=== PATIENT | female | born 1980 | race Caucasian/White ===

== ENCOUNTER → 2018-08-28 19:21 | Outpatient (CLI) | payer OTHER, SELFPAY ==
[2018-08-28 16:57] VITALS: BMI 45.1
[2018-08-28 19:40] LABS: Absolute Lymphocyte Count 2.56 X10^3/ul (0.83-4.51); Basophil# 0.01 X10^3/uL; Basophil% 0.1 % (0-1); Eosinophils% 2.4 % (0-5); Hematocrit 36.1 % (37-47); Hemoglobin 11.4 g/dl (12.0-15.0); Lymphocyte # 2.56 X10^3/ul (4.0); Mean Corp Hgb Conc 31.6 g/gl (32-36); Mean Corpuscular Hgb 29.4 pg (27.0-32.0); Mean Platelet Vol. 11.2 fl (6.2-12.0); Monocyte# 0.49 X10^3/uL; Monocyte% 5.9 % (0-10); Neutrophil % 60.5 % (47-70); Platelet Count 161 K/mm3 (150-450); RBC Distribution Width CV 14.3 % (11.6-14.6); RBC Distribution Width SD 48.1 fl (35.1-43.9); Red Blood Count 3.88 M/mm3 (4.2-5.4); White Blood Count 8.3 K/mm3 (4.4-11.0)
[2018-08-28 19:43] LABS: POSITIVE COUNT NO; POSITIVE DIFFERENTIAL NO; POSITIVE MORPHOLOGY NO
[2018-08-28 19:55] LABS: AST(SGOT) 12 U/L (15-37); Alanine Aminotransfer ALT/SGPT 21 U/L (13-56); Albumin, Serum 3.5 g/dL (3.2-5.0); Alkaline Phosphatase 70 U/L (45-117); Anion Gap 5 (5-15); BUN 20 mg/dL (7-18); BUN/Creat Ratio 21.1 RATIO (10-20); Calcium,Total 8.2 mg/dL (8.5-10.1); Chloride 105 mmol/L (98-107); Cholesterol 217 mg/dL (200); Creatinine, Serum 0.95 mg/dL (0.55-1.02); EST Glomerular Filtration Rate 70 mL/min (>60); Est Glom Filt Rate - Afr Amer 85 mL/min (>60); Globulin 3.6 g/dL (2.2-4.2); Glucose 93 mg/dL (74-106); High Density Lipoprotein 45 mg/dL; Potassium 4.2 mmol/L (3.5-5.1); Protein, Total 7.1 g/dL (6.4-8.2); Sodium Level 140 mmol/L (136-145); Thyroid Stim Hormone (TSH) 0.99 uIU/mL (0.358-3.74); Triglycerides 210 mg/dL; Very Low Density Lipoprotein 42 mg/dL (5-40)
--- OUTSIDE RECORDS SUMMARY | 2018-10-23 17:02 | XMS RPT_ITS ---
:1980 Author Organization [facility] Care Team Providers Name Role Phone Susie Person [employer] Attending Unavailable Susie Person [employer] Primary Care Unavailable Susie Person [employer] Referring Unavailable PROBLEMS PROBLEMS DATE TYPE CONDITION / CODE ATTENDING STATUS SOURCE 08/31/2018 Unknown E03.9 - [place], Active [place] Hypothyroidism, Susie [employer] Community unspecified / Hospital E03.9(ICD-10) Repository 08/31/2018 Unknown I10 - Essential Person, Active [place] (primary) Susie [employer] [facility] hypertension / Hospital I10(ICD-10) Repository PROCEDURES PROCEDURES No Procedure Records FoundRESULTS RESULTS OFFICE VISIT Observed: 09/03/2018 Status: F Source: [place] 8:23 PM [facility] REPOSITORY [facility] [address] [place] [address] OFFICE VISIT Date of Service: 09/03/18 MR#: [id number] Acct: [id number] Name: MARY ANN HERNANDEZ Rep #: [id number] : 1980 Provider: BRYNN Person Age/Sex: 38/F Location: [facility] Status: Signed Intake Vital Signs09/03/18 Height 5 ft 3.75 in 09/03/18 Weight: 253 lb Intake Visit Reasons: Sinus infection Allergies cefdinir Adverse Reaction (Intermediate, Unverified 08/28/18 16:28) u Penicillins Adverse Reaction (Intermediate, Unverified 08/28/18 16:28) u Medications levothyroxine 137 mcg tablet 137 mcg PO DAILY 08/28/18 [History Confirmed 08/28/18] metoprolol succinate ER 100 mg tablet,extended release 24 hr 100 mg PO DAILY #90 tab 08/28/18 [Rx Confirmed 08/28/18] montelukast 10 mg tablet 10 mg PO QPM #90 tab 08/28/18 [Rx Confirmed 08/28/18] ciprofloxacin 500 mg tablet 500 mg PO BID #20 tab 09/03/18 [Rx Confirmed 09/03/18] PFSH Medical History Asthma (Acute) Cardiac arrhythmia (Acute) IBS (irritable bowel syndrome) (Acute) Migraines (Acute) Hypertension (Chronic) Surgical History History of appendectomy (Acute) History of cholecystectomy (Acute) S/P (Acute) Family History Other FH: kidney cancer Liver cancer Social History Smoking Status: Never smoker HPI HPI (General) HPI HPI: MARY ANN HERNANDEZ, is a 38 F who presents to the office today for ROS Const Constitutional: Positive for anorexia, body ache, fatigue, headache(s), fever(s) and other (loose stools) ENT ENT: Positive for headache(s), ear pain, sinus pressure, hoarseness, post nasal drip, nasal discharge and sore throat Resp Respiratory: Positive for cough (pale yellow) Cough: Yes productive Gastro GI: Yes other (loose stools) Neuro Neurology: Positive for headache(s) Endo Endo: Yes fatigue Exam Const Constitutional: Yes cooperative, Yes healthy appearing Orientation: Yes alert, awake and oriented x3 HENMT Head: Yes normocephalic Ear: Yes hearing grossly normal bilaterally TM-Right: red TM-Left: red Face: Yes normal facial exam Nose: Yes external nose normal Mouth: Yes oral mucosae normal Teeth and Gingiva: Yes dentition normal Throat: Yes posterior oropharynx normal, Yes redness Neck Neck: normal visual inspection Thyroid: thyroid normal Eyes General: Yes appearance normal, both eyes and all related structures Chest Chest palpation AND inspection: Yes normal inspection of the chest Resp Effort AND Inspection: Yes normal respiratory effort Auscultation: Yes clear to auscultation bilaterally Cardio Palpitation: Yes normal PMI Rate: Yes regular rate Rhythm: Yes regular rhythm GI Inspection: Yes normal to inspection Auscultation: Yes normal bowel sounds Musc Cervical Spine: Yes cervical ROM normal Thoracic/Lumbar Spine: Yes thoracic and lumbar spine normal to inspection Skin General: no rashes or lesions noted Lesions: Yes no lesions Extrem General: Yes normal to inspection Neuro General: Yes alert and oriented x3 Psych Appearance: Positive grossly normal Mood: Positive congruent mood Affect: Positive normal affect Assessment AND Plan Problems 1. Bilateral otitis media H66.93 2. Maxillary sinusitis, acute J01.00 Patient Instructions Take the antibiotic still gone push the fluids and continue the Mucinex and Pseudafed follow up as needed Medications New: Coding Level of Care Code Off vis,est,level 3 Diagnoses Bilateral otitis media H66.93 Maxillary sinusitis, acute J01.00 09/03/182022 <Electronically signed by Susie GALLOWAY> Date Susie GALLOWAY CC: OFFICE VISIT Observed: 08/28/2018 Status: F Source: [place] 7:20 PM [facility] REPOSITORY [facility] [address] [place] [address] OFFICE VISIT Date of Service: 08/28/18 MR#: [id number] Acct: [id number] Name: MARY ANN HERNANDEZ Rep #: [id number] : 1980 Provider: BRYNN Person Age/Sex: 38/F Location: [facility] Status: Signed Intake Vital Signs08/28/18 Height 5 ft 3.75 in 08/28/18 Weight: 261 lb Intake Visit Reasons: RX REFILL Accompanied by: self Is patient in pain?: No Allergies cefdinir Adverse Reaction (Intermediate, Unverified 08/28/18 16:28) u Penicillins Adverse Reaction (Intermediate, Unverified 08/28/18 16:28) u Medications levothyroxine 137 mcg tablet 137 mcg PO DAILY 08/28/18 [History Confirmed 08/28/18] metoprolol succinate ER 100 mg tablet,extended release 24 hr 100 mg PO DAILY #90 tab 08/28/18 [Rx Confirmed 08/28/18] montelukast 10 mg tablet 10 mg PO QPM #90 tab 08/28/18 [Rx Confirmed 08/28/18] Is last menstrual period known: Yes Post menopausal: No Patient : Yes PFSH Medical History Asthma (Acute) Cardiac arrhythmia (Acute) IBS (irritable bowel syndrome) (Acute) Migraines (Acute) Hypertension (Chronic) Surgical History History of appendectomy (Acute) History of cholecystectomy (Acute) S/P (Acute) Family History Other FH: kidney cancer Liver cancer Social History Smoking Status: Never smoker HPI HPI (General) HPI HPI: MARY ANN HERNANDEZ, is a 38 F who presents to the office today for medication refills Keeps forgetting her AM dose on her labetalol and wants to change Needs labs drawn for Work PE continues to lose weight ROS Const Constitutional: No anorexia, body ache, chills, excessive sweating, fatigue, fever(s), frequent falls, headache(s), decreased energy, malaise, night sweats, snoring, weakness, weight change, sleep problems, abnormal sleep pattern, change in appetite or other Eyes Eyes: No blurry vision, change in vision, double vision, discharge, dry eyes, bulging eyes, floaters, visual disturbances, eye pain, light sensitivity, spots in vision, tunnel vision or other ENT ENT: No headache(s), abnormal hearing, ear pain, ear discharge, ear pressure, hearing loss, tinnitus, dizziness/vertigo, balance problems, nosebleed/epistaxis, nasal congestion, nasal obstruction, nose pain, sinus pressure, sinus pain, nasal discharge, post nasal drip, facial pain, dental pain, dry mouth, difficulty swallowing, bad breath, hoarseness, lip swelling, mouth lesions, mouth pain, neck pain, sore throat, tongue swelling, throat swelling or other Resp Respiratory: No snoring, cough, change in phlegm color, chest congestion, excessive phlegm production, hemoptysis, pain on inspiration, shortness of breath, pain with cough, stridor, wheezing or other Cardio Cardiology: No excessive sweating, chest pain at rest, chest pain with exertion, leg pain with exertion, shortness of breath, dyspnea on exertion, generalized swelling, irregular heart rhythm, lightheadedness, orthopnea, radiating jaw, neck or arm pain, fast heart rate, slow heart rate, palpitations or other Gastro GI: No other, No Difficulty Swallowing, No abdominal pain, No belching, No bloating, No change in bowel habits, No change in stool character, No coffee ground emesis, No constipation, No cramping, No diarrhea, No heartburn, No feeling full early, No excessive flatus, No incontinent of stools, No Vomiting blood/hematemesis, No Blood in stool, No loose stools, No Black,tarry stools, No nausea/dyspepsia, No pain with swallowing, No vomiting, No hemorrhoids, No rectal pain Genitourinary: No urinary frequency, difficulty urinating, burning urination, painful urination, urinary urgency or blood in urine Musc Musculoskeletal: No neck pain, abnormal walking, joint pain, back pain, deformity, joint swelling, limited range of motion, loss of height, muscle cramps, muscle weakness, decreased muscle mass, body aches, numbness, radiating pain into limb, stiffness, tingling or other Skin Skin: No acne, hair loss, change in hair, nail changes, boil, change in skin color, dry skin, redness, excessive hair growth, yellowing of the skin, lesions, itching, rash, skin pain, skin ulcer, sores, skin swelling, wounds or other Breast Breast: No other Neuro Neurology: No frequent falls, headache(s), weakness, visual disturbances, abnormal hearing, abnormal walking, numbness, tingling, abnormal movements, abnormal speech, behavioral changes, confusion, unsteady gait/balance, dizziness, lack of coordination, loss of vision, memory loss, restless legs, fainting, tremor(s) or other Psych Psychiatric: No abnormal sleep pattern, No change in appetite, No behavioral changes, No confusion, No memory loss, No lack of enjoyment, No anxiety, No depression, No difficulty concentrating, No hopelessness, No irritability, No mood swings, No panic attacks, No paranoia, No Thoughts of harming yourself/Others, No hallucinations, No other Endo Endo: No excessive sweating, No fatigue, No other Aller/Imm Allergy/Immunologic: No lip swelling, tongue swelling, throat swelling, wheezing or itchy eyes Exam Const Constitutional: Yes cooperative, Yes healthy appearing Orientation: Yes alert, awake and oriented x3 HENMT Head: Yes normocephalic Ear: Yes hearing grossly normal bilaterally Neck Neck: normal visual inspection Thyroid: thyroid normal Eyes General: Yes appearance normal, both eyes and all related structures Chest Chest palpation AND inspection: Yes normal inspection of the chest Resp Effort AND Inspection: No stridor Auscultation: Yes clear to auscultation bilaterally Cardio Palpitation: Yes normal PMI Rate: Yes regular rate Rhythm: Yes regular rhythm GI Inspection: Yes normal to inspection Auscultation: Yes normal bowel sounds Rectal Exam: No hemorrhoids Musc Cervical Spine: Yes cervical ROM normal Thoracic/Lumbar Spine: Yes thoracic and lumbar spine normal to inspection Skin General: no rashes or lesions noted Lesions: Yes no lesions Extrem General: Yes normal to inspection Neuro General: Yes alert and oriented x3 Motor: No weakness Psych Appearance: Positive grossly normal Mood: Positive congruent mood Affect: Positive normal affect Assessment AND Plan Problems 1. Essential hypertension I10 2. Acquired hypothyroidism E03.9 Patient Instructions Take the medications as prescribed Will call with the results Orders Orders: Medications New: Discontinued: Coding Level of Care Code Off vis,est,level 3 Diagnoses Essential hypertension I10 Hypertension type: essential hypertension Acquired hypothyroidism E03.9 Hypothyroidism type: acquired 08/28/181919 <Electronically signed by Susie GALLOWAY> Date Susie GALLOWAY CC: CBC W/DIFF, AUTOMATED Collected: 08/28/2018 Status: F Source: [place] 5:32 PM [facility] REPOSITORY TYPE CODE TESTS RESULT OUT OF RANGE REFERENCE UNITS LAB L100.1000 4.4-11.0 K/mm3 Normal WBC 8.3 LAB L100.1200 4.2-5.4 M/mm3 Low RBC 3.88 LAB L100.1300 12.0-15.0 g/dl Low HGB 11.4 LAB L100.1400 37-47 % Low HCT 36.1 LAB L100.1500 81-99 fL Normal MCV 93.0 LAB L100.1600 27.0-32.0 pg Normal MCH 29.4 LAB L100.1700 32-36 g/gl Low MCHC 31.6 LAB L100.1810 11.6-14.6 % Normal RDW CV 14.3 LAB L100.1820 35.1-43.9 fl High RDW SD 48.1 LAB L100.1900 150-450 K/mm3 Normal PLT 161 LAB L100.2000 6.2-12.0 fl Normal MPV 11.2 LAB L100.2100 47-70 % Normal NEUT% 60.5 LAB L100.2200 19-41 % Normal LY% 31.0 LAB L100.2300 0-10 % Normal MONO% 5.9 LAB L100.2400 0-5 % Normal EO% 2.4 LAB L100.2500 0-1 % Normal BASO% 0.1 LAB L100.2550 0.0-0.9 % Normal IM GRAN % 0.100 Result Comment: IG% - Immature Granulocytes (promyelocytes, myelocytes and metamyelocytes) > 1% indicates that a LEFT SHIFT is Present. LAB L100.2620 2.0-7.7 X10 3/uL Normal Absolute Neut 5.0 LAB L100.2720 0.83-4.51 X10 3/ul Normal Absolute Lymph 2.56 Performed By: #### L100.0100 #### [facility] [address] [place], [address] COMPREHENSIVE METABOLIC Collected: 08/28/2018 Status: F Source: [facility] 5:32 PM [facility] REPOSITORY TYPE CODE TESTS RESULT OUT OF RANGE REFERENCE UNITS LAB L501.0100 74-106 mg/dL Normal GLU 93 Result Comment: Please note revised GLUCOSE reference range effective 2017. LAB L501.1000 7-18 mg/dL High BUN 20 LAB L501.1100 0.55-1.02 mg/dL Normal CREAT,SERUM 0.95 Result Comment: The validity of the calculated GFR AND GFRAA in patients over 70 years has not been determined. Clinical correlation is essential. LAB L501.1110 >60 mL/min Normal EST GFR 70 Result Comment: Non- GFR Calc LAB L501.1115 >60 mL/min Normal EST GFR - AA 85 Result Comment: GFR Calc LAB L501.1300 10-20 RATIO High BUN/CRE 21.1 LAB L501.1500 6.4-8.2 g/dL T Normal PROT 7.1 LAB L501.1800 3.2-5.0 g/dL Normal ALB 3.5 LAB L501.1950 2.2-4.2 g/dL Normal GLOB 3.6 LAB L501.2000 0.9-2.4 RATIO Normal A/G 1.0 LAB L501.2200 8.5-10.1 mg/dL Low CA 8.2 LAB L501.4100 15-37 U/L Low AST 12 LAB L501.4305 45-117 U/L Normal ALK P 70 LAB L501.4405 13-56 U/L Normal ALT 21 LAB L501.4600 0.20-1.00 mg/dL T Normal BILI 0.20 LAB L501.5300 136-145 mmol/L NA Normal 140 LAB L501.5600 3.5-5.1 mmol/L K Normal 4.2 LAB L501.5900 98-107 mmol/L CL Normal 105 LAB L501.6100 21.0-32.0 mmol/L Normal CO2 30.0 LAB L501.6200 5-15 Normal GAP 5 Performed By: #### L500.4050, L500.4100, L501.9520 #### [facility] [address] [place], [address] LIPID PROFILE Collected: 08/28/2018 Status: F Source: [place] 5:32 PM [facility] REPOSITORY TYPE CODE TESTS RESULT OUT OF RANGE REFERENCE UNITS LAB L501.4900 200 mg/dL High CHOL 217 Result Comment: <200 mg/dL Desirable 200-240 mg/dL Borderline >240 mg/dL High Risk LAB L501.5000 mg/dL High TRIG 210 Result Comment: The drugs N-Acetylcysteine and Metamizole may falsely depress this assay. Serum Triglycerides Reference Interval Normal <150 mg/dL Borderline high 150 - 199 mg/dL High 200 - 499 mg/dL Very High > or = 500 mg/dL LAB L501.6400 mg/dL Normal HDL 45 Result Comment: The drugs N-Acetylcysteine and Metamizole may falsely depress this assay. Reference Range HDL <40 mg/dL Low HDL Cholesterol HDL >or= 60 mg/dL High HDL Cholesterol LAB L501.6500 0-130 mg/dL Normal LDL 130 LAB L501.6600 5-40 mg/dL High VLDL 42 Performed By: #### L500.4050, L500.4100, L501.9520 #### [facility] [address] [place], [address] THYROID STIM HORMONE Collected: 08/28/2018 Status: F Source: [place] (TSH) 5:32 PM [facility] REPOSITORY TYPE CODE TESTS RESULT OUT OF RANGE REFERENCE UNITS LAB L501.9520 0.358-3.74 uIU/mL Normal TSH 0.99 Performed By: #### L500.4050, L500.4100, L501.9520 #### [facility] [address] [place], [address] ALLERGIES ALLERGIES DATE TYPE / CODE NAME / CODE REACTION SEVERITY SOURCE 08/28/2018 Drug Penicillins/ u MO [facility] Allergy/4160 [id number](R Hospital 68496(SNOMED XNORM) Repository CT) 08/28/2018 Drug cefdinir/F00 [address] [facility] Allergy/4160 [id number](RXNO Hospital [address]41(SNOMED RM) Repository CT) ENCOUNTERS ENCOUNTERS ADMIT/DISCHARGE ACCOUNT ADMITTING ENCOUNTER LOCATION SOURCE NUMBER CLASS 08/28/2018 [id number] [place] 0 [facility] ing:[facility]SPEC Repository PAYERS PAYERS ENCOUNTER GUARANTOR PAYER SUBSCRIBER SOURCE 08/28/2018 MAGI Rossi [place] [address] Insurance[facility] [id number]: Repository [id number]: [phone] [phone] (HP) Date:[id number] [address] [place] [id number]: 08/28/2018 Secondary NOT GIVENOSVALDO [place] Insurance:SELF PAY [facility] Number: Effective Repository Date:2018-08-28
== END ==
PROVIDERS: Family Provider Nurse Practitioner; PCP Nurse Practitioner; Referring Provider Nurse Practitioner; Visit Provider Nurse Practitioner
DX: I10 Essential (primary) hypertension (principal); E03.9 Hypothyroidism, unspecified
CPT/HCPCS: 80053; 80061; 84443; 85025

== ENCOUNTER → 2020-09-01 09:50 | Outpatient (CLI) | payer OTHER, SELFPAY ==
[2020-07-12 17:19] VITALS: BMI 46.0
--- NOTE | 2020-09-01 09:54 | BI_ITS ---
MAMMOGRAPHY - BILATERAL SCREENING REASON FOR EXAM: Female, 40 years old. Routine annual screening examination. PERTINENT HISTORY: Non-contributory. TECHNIQUE: Digital bilateral breast sean (3D mammographic acquisition) in the CC and MLO projections. 2-D mediolateral oblique (MLO) and craniocaudad (CC) views of both breasts were obtained. CAD: Full Field Digital Mammography with Computer Added Detection was performed. COMPARISON: None. Baseline examination. FINDINGS: Breast Composition: There are scattered areas of fibroglandular density. There are no dominant masses or suspicious calcifications. Benign appearing bilateral axillary lymph nodes. No other significant abnormalities are identified. BI/SCREEN MAMM (CAD) W/SEAN BILAT IMPRESSION: Negative screening mammogram. Yearly followup mammogram recommended. (A) ASSESSMENT CATEGORY: BIRADS Category 2: Benign. A letter regarding these results will be sent to the patient by the facility within 30 days. Approximately 10% of breast cancers are not detected by mammography. A normal mammogram should not delay biopsy of a clinically suspicious abnormality. [id number] Electronically Signed: Jose J Wagner, at 12:16 EST , Service support ,
== END ==
PROVIDERS: PCP Nurse Practitioner; Referring Provider Obstetrics & Gynecology; Visit Provider Obstetrics & Gynecology
DX: Z12.31 Encounter for screening mammogram for malignant neoplasm of breast (principal)
CPT/HCPCS: 77063; 77067

== ENCOUNTER → 2020-11-23 16:23 | Outpatient (CLI) | payer OTHER, SELFPAY ==
[2020-10-17 14:52] VITALS: BMI 46.7
--- NOTE | 2020-11-23 16:32 | MRI_ITS ---
STUDY: MRI BRAIN WITH AND WITHOUT CONTRAST (ATTENTION INTERNAL AUDITORY CANALS - I.A.C.''s) REASON FOR EXAM: Female, 40 years old. TINNITUS L EAR TECHNIQUE: Standardized multiplanar fat and water weighted pulse sequences were obtained. IV 24ml Dotarem was administered for the contrast portion of the examination. COMPARISON: None. FINDINGS: Normal bilateral temporal bones. Normal bilateral internal auditory canals. There is no demonstrated intracanalicular or cisternal vestibular schwannoma (acoustic neuroma). There is no enhancement of the bilateral VIIth or VIIIth cranial nerves. Normal bilateral cochlea, vestibules and semicircular canals. Normal size of the ventricles and extra-axial spaces for the patient''s age. Normal white matter tracts of the supratentorial brain. Normal bilateral basal ganglia. Normal thalami. Normal flow voids within the major intracranial circulation suggesting patency by spin echo criteria. Normal venous enhancement. There is no enhancing intra-axial or extra-axial abnormality. There is no extra-axial fluid accumulation. Normal sella turcica, pituitary gland, infundibular stalk, optic chiasm and hypothalamus. Normal tectal plate and pineal gland. Normal midbrain, russ and medulla. Normal cerebellum. Normal basal cisterns. No demonstrated orbital abnormality, within the constraints of a routine brain study. Normal visualized paranasal sinuses. Normal calvarium and skull base. Normal visualized soft tissue structures. Normal visualized upper cervical spine. Mild mucosal thickening of the maxillary and ethmoid sinuses bilaterally MRI/Brain W/WO Contrast IMPRESSION: Normal unenhanced and enhanced MRI of the bilateral internal auditory canals (I.A.C''s). Mild bilateral maxillary and ethmoid sinus disease Electronically Signed: Stu Hoff MD at 17:45 EST , Service support ,
== END ==
PROVIDERS: PCP Nurse Practitioner; Referring Provider Otolaryngology; Visit Provider Otolaryngology
DX: H93.12 Tinnitus, left ear (principal)
CPT/HCPCS: 70553; A9575

== ENCOUNTER → 2022-01-16 | Outpatient (CLI) | payer OTHER, SELFPAY ==
[2022-01-16 10:50] LABS: Mucous, Urine 0 SEEN /hpf (<or=2+)
[2022-01-16 10:58] LABS: Color, Urine Yellow (Yellow); Glucose, Dipstick Normal (Normal); Ketone-Dipstick Negative (Negative); Leukocyte Esterase-Dipstick 500 /ul (Negative); Nitrite-Dipstick Negative (Negative); Occult Blood-Urine 50 /ul (Negative); Protein-Dipstick Negative (Negative); Urine Bilirubin Dipstick Negative (Negative); Urine Clarity Sl. Cloudy (Clear); Urine Urobilinogen Normal (Normal)
[2022-01-16 11:15] LABS: Bacteria 1+ /hpf (None Seen); Red Blood Cells-Urine 0-5 SEEN /hpf (0-5); Squamous Epithelial Cells - UA 5-10 SEEN /hpf (5-10); White Blood Cells 25-50 SEEN /hpf (0-5)
== END | disposition home or self-care (01) ==
LOC: LABSPEC 10:24
PROVIDERS: PCP Nurse Practitioner; Visit Provider Physician Assistant Surgical
DX: B37.9 Candidiasis, unspecified (principal)
CPT/HCPCS: 81001; 87086; 87088

== ENCOUNTER 2023-09-01 11:02 | Emergency (ER) | payer OTHER, SELFPAY ==
[2023-09-01 11:03] VITALS: BP 166/97; PULSE 98; RESP 16; TEMP 36.1; O2SAT 100; BMI 46.4
--- NOTE | 2023-09-01 11:31 | CT_ITS ---
STUDY: CT ABDOMEN AND PELVIS WITH CONTRAST REASON FOR EXAM: Female, 43 years old. LLQ pain with nausea and diarrhea. RADIATION DOSAGE (If Supplied By Facility): CTDIvol = ( 17.00 ) mGy, DLP = ( 1334.76 ) mGycm TECHNIQUE: Transaxial images were obtained from the dome of the diaphragm to the symphysis pubis without oral contrast. IV 100mL Isovue-300 was administered. Sagittal and coronal images were reconstructed. Individualized dose optimization techniques were used for this CT. COMPARISON: None. FINDINGS: Calcified granuloma in the right lower lobe. The visualized portions of the heart are within normal limits. There is decreased attenuation of the liver consistent with steatosis. There are surgical clips in the gallbladder fossa consistent with a prior cholecystectomy. Mild degree of splenomegaly. Findings suggestive of a varices in the region of the splenic hilum. Normal pancreas. Normal bilateral adrenal glands. Normal right kidney. There is a 4.6 on the left 5.3 cm cyst in the upper anterior aspect of the left kidney. Incidental note is made of a left retroaortic renal vein. Normal visualized stomach. Normal small intestine. Normal colon. The appendix is visualized and appears normal. Normal abdominal aorta. Normal inferior vena cava. Normal retroperitoneum. Small lymph nodes are seen in the mesenteric fat in the right lower quadrant suggestive of mesenteric adenitis. Normal urinary bladder. Small bilateral inguinal lymph nodes. Marked degree of joint space narrowing of the right hip joint with deformity of the proximal right femoral head degenerative spur formation. CT/Abdomen/Pelvis W IV Cont ONLY IMPRESSION: Mild splenomegaly. Findings suggestive of varices in the region of the splenic hilum. Fatty infiltration of the liver. Renal cysts. Electronically Signed: Jose J Wagner MD at 14:02 EST ,
--- NOTE | 2023-09-01 11:32 | ED.VIS.GI ---
HPI <SCOTT Marques - Last Filed: 09/01/23 14:46> HPI - GI History of Present Illness Chief Complaint: Abd Pain Narrative Narrative: Patient presenting today due to nausea and diarrhea that she has had since Friday. She reports that she is having several loose stools per day, she denies any melena or hematochezia. She reports that yesterday she developed a sharp and cramping left lower quadrant abdominal pain that is intermittent. She denies any history of diverticulitis. Previous abdominal surgeries include appendectomy, cholecystectomy, and C-sections. She denies any fever, chills, vomiting, and urinary symptoms. [facility] <SCOTT Marques - Last Filed: 09/01/23 14:46> [facility] Medical History (Updated 09/01/23 @ 14:46 by SCOTT Marques) Asthma Cardiac arrhythmia Hypertension IBS (irritable bowel syndrome) Migraines Home Medications levothyroxine 137 mcg tablet 137 mcg PO DAILY #90 tabs 09/06/20 [Rx Last Taken Unknown] losartan 100 mg tablet 100 mg PO DAILY #90 tabs 09/06/20 [Rx Last Taken Unknown] montelukast 10 mg tablet (Singulair) 10 mg PO QPM #90 tabs 09/06/20 [Rx Last Taken Unknown] levofloxacin 500 mg tablet 500 mg PO DAILY #10 tabs 10/17/20 [Rx Last Taken Unknown] fluconazole 150 mg tablet 150 mg PO Q3D 2 doses #2 tabs 08/07/23 [Rx Last Taken Unknown] dicyclomine 10 mg capsule 10 mg PO BID PRN abdominal pain #10 caps 09/01/23 [Rx Last Taken Unknown] ondansetron 4 mg disintegrating tablet 4 mg PO Q8H PRN PRN Nausea #10 tabs 09/01/23 [Rx Last Taken Unknown] Allergy/AdvReac Type Severity Reaction Status Date / Time acetaminophen [From Percocet] Allergy Mild Other Verified 09/01/23 11:03 bupropion [From Wellbutrin] Allergy Mild Other Verified 09/01/23 11:03 hydrocodone [From Vicodin] Allergy Mild Other Verified 09/01/23 11:03 morphine Allergy Mild Other Verified 09/01/23 11:03 oxycodone [From Percocet] Allergy Mild Other Verified 09/01/23 11:03 lisinopril AdvReac Severe cough Verified 09/01/23 11:03 metoprolol AdvReac Severe asthma Verified 09/01/23 11:03 cefdinir AdvReac Intermediate u Verified 09/01/23 11:03 Penicillins AdvReac Intermediate u Verified 09/01/23 11:03 Family History Other FH: kidney cancer Liver cancer Surgical History History of appendectomy History of cholecystectomy S/P Social History Smoking Status: Never smoker ROS <SCOTT Marques - Last Filed: 09/01/23 14:46> ROS ED Constitutional Constitutional ED: Denies chills or fever(s) Cardiovascular Cardiovascular: Denies chest pain Respiratory/Chest Respiratory/Chest: Denies cough or dyspnea Gastrointestinal Gastrointestinal: Reports abdominal pain, diarrhea and nausea; Denies constipation, melena or vomiting Genitourinary Genitourinary ED: Denies dysuria, hematuria or urinary urgency Musculoskeletal Musculoskeletal: Denies arthralgias or myalgias Integumentary Denies rash Neurologic Neurologic: Denies weakness EXAM <SCOTT Marques - Last Filed: 09/01/23 14:46> Physical Exam Const Vital Signs: 09/01/23 11:03 Temperature 96.9 F L Temperature Source Temporal Pulse Rate 98 Respiratory Rate 16 Blood Pressure 166/97 H Blood Pressure Mean 120 Pulse Ox 100 Oxygen Delivery Method Room Air Positive well nourished, well developed and no apparent distress General Appearance ED: well developed HEENT Reports normocephalic and head/scalp atraumatic Mouth ED: Yes moist mucous membranes normal Eyes PERRL and EOMs intact bilaterally Neck full ROM and supple Chest Wall inspection of chest normal Resp normal respiratory effort and clear to auscultation bilaterally Cardio regular rate and regular rhythm GI soft to palpation, non-distended and no masses GI Narrative: Left lower quadrant tenderness to palpation without any rigidity, guarding, or peritoneal signs. Palpation: Negative for rebound tenderness present Back/Spine normal ROM and normal to inspection Extremity normal to inspection and full ROM Neuro oriented x3, CN's II-XII intact bilaterally, moves all extremities, no focal motor deficits and no sensory deficits noted Sensorium / Orientation: awake and alert Psych mental status grossly normal and thought process normal Skin no rashes or lesions noted and no wounds <Dr. Diego Steiner DO - Last Filed: 09/01/23 15:26> Physical Exam Const Vital Signs: 09/01/23 11:03 Temperature 96.9 F L Temperature Source Temporal Pulse Rate 98 Respiratory Rate 16 Blood Pressure 166/97 H Blood Pressure Mean 120 Pulse Ox 100 Oxygen Delivery Method Room Air MDM <SCOTT Marques - Last Filed: 09/01/23 14:46> [facility] MDM Narrative Medical decision making narrative: Patient presenting due to abdominal pain, nausea, and diarrhea. She has had the diarrhea since Friday, abdominal pain since yesterday. She thinks that her symptoms could be related to eating at [employer] on Friday. No exposures to C. difficile, most recent antibiotics for was about a month ago for a sinus infection, low concern for c. diff. She is nontoxic-appearing and in no acute distress. She does have left lower quadrant abdominal pain to palpation, CT of the abdomen and pelvis will be obtained to rule out diverticulitis, colitis, kidney stone, and other etiology. Labs will be obtained and she will be given IV fluids, Zofran, and Toradol. Labs overall are unremarkable aside from from potassium 3.3, creatinine 1.44. On reexamination she is feeling improved. 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 She will be given a prescription for Zofran and Bentyl. She is to follow-up with her PCP and will be discharged home in stable condition. She is comfortable with plan. Lab Data Attestation: I reviewed the patient's lab results. Labs: Laboratory Results - last 24 hr 09/01/23 09/01/23 11:55 12:25 WBC 8.1 RBC 4.01 L Hgb 12.1 Hct 38.2 MCV 95.3 MCH 30.2 MCHC 31.7 L RDW Std Deviation 47.7 H RDW Coeff of Svetlana 13.6 Plt Count 189 MPV 11.4 Immature Gran % (Auto) 0.500 Neut % (Auto) 68.1 Lymph % (Auto) 23.9 [place] % (Auto) 5.7 Eos % (Auto) 1.4 Baso % (Auto) 0.4 Absolute Neuts (auto) 5.5 Absolute Lymphs (auto) 1.94 Nucleated RBC % 0 Sodium 139 Potassium 3.3 L Chloride 101 Carbon Dioxide 29.0 Anion Gap 9 BUN 14 Creatinine 1.44 H Estim Creat Clear Calc 39.84 Est GFR (MDRD) Af Amer 51 L Est GFR (MDRD) Non-Af 42 L BUN/Creatinine Ratio 9.7 L Glucose 103 Calcium 8.9 Total Bilirubin 0.40 AST 29 ALT 50 Alkaline Phosphatase 93 Total Protein 8.0 Albumin 3.7 Globulin 4.3 H Albumin/Globulin Ratio 0.9 Lipase 30 Serum , Qual NEGATIVE Urine Color Yellow Urine Clarity Clear Urine pH 7.0 Ur Specific [place] 1.005 Urine Protein Negative Urine Glucose (UA) Normal Urine Ketones Negative Urine Occult Blood 50 H Urine Nitrite Negative Urine Bilirubin Negative Urine Urobilinogen Normal Ur Leukocyte Esterase Negative Urine RBC 0 SEEN Urine WBC 0 SEEN Ur Squamous Epith Cells 0 SEEN Urine Bacteria 0 SEEN Urine Mucus 0 SEEN Radiography Diagnostic Testing: Clinical Impression(s) from Imaging Studies Abdomen/Pelvis CT 09/01/23 11:31 IMPRESSION: Mild splenomegaly. Findings suggestive of varices in the region of the splenic hilum. Fatty infiltration of the liver. Renal cysts. Electronically Signed: Jose J Wagner MD at 14:02 EST Reading Location ID and State: 3 [facility] , Service support , <Dr. Diego Steiner, DO - Last Filed: 09/01/23 15:26> [facility] Lab Data Labs: Laboratory Results - last 24 hr 09/01/23 09/01/23 11:55 12:25 WBC 8.1 RBC 4.01 L Hgb 12.1 Hct 38.2 MCV 95.3 MCH 30.2 MCHC 31.7 L RDW Std Deviation 47.7 H RDW Coeff of Svetlana 13.6 Plt Count 189 MPV 11.4 Immature Gran % (Auto) 0.500 Neut % (Auto) 68.1 Lymph % (Auto) 23.9 [place] % (Auto) 5.7 Eos % (Auto) 1.4 Baso % (Auto) 0.4 Absolute Neuts (auto) 5.5 Absolute Lymphs (auto) 1.94 Nucleated RBC % 0 Sodium 139 Potassium 3.3 L Chloride 101 Carbon Dioxide 29.0 Anion Gap 9 BUN 14 Creatinine 1.44 H Estim Creat Clear Calc 39.84 Est GFR (MDRD) Af Amer 51 L Est GFR (MDRD) Non-Af 42 L BUN/Creatinine Ratio 9.7 L Glucose 103 Calcium 8.9 Total Bilirubin 0.40 AST 29 ALT 50 Alkaline Phosphatase 93 Total Protein 8.0 Albumin 3.7 Globulin 4.3 H Albumin/Globulin Ratio 0.9 Lipase 30 Serum , Qual NEGATIVE Urine Color Yellow Urine Clarity Clear Urine pH 7.0 Ur Specific [place] 1.005 Urine Protein Negative Urine Glucose (UA) Normal Urine Ketones Negative Urine Occult Blood 50 H Urine Nitrite Negative Urine Bilirubin Negative Urine Urobilinogen Normal Ur Leukocyte Esterase Negative Urine RBC 0 SEEN Urine WBC 0 SEEN Ur Squamous Epith Cells 0 SEEN Urine Bacteria 0 SEEN Urine Mucus 0 SEEN Radiography Diagnostic Testing: Clinical Impression(s) from Imaging Studies Abdomen/Pelvis CT 09/01/23 11:31 IMPRESSION: Mild splenomegaly. Findings suggestive of varices in the region of the splenic hilum. Fatty infiltration of the liver. Renal cysts. Electronically Signed: Jose J Wagner MD at 14:02 EST , Treatment and Re-Evaluation :: I have personally performed a face to face assessment of the patient and have reviewed the LUNA Note. I performed a substantive portion of the visit including all aspects of the following. My colon findings include: History: Patient presents with abdominal pain that began yesterday. Patient states that it came on gradually. Patient states it has been constant. Patient describes it as cramping and stabbing. Patient states it started in the periumbilical area but is now mainly over the left lower abdomen. Patient states it is worse with movement. Patient admits to some nausea but denies any vomiting. Patient admits to some watery diarrhea. Patient denies any melena or hematochezia. Patient denies any urinary complaints. Patient denies any fevers or chills. Exam: Vital signs are stable except for an elevated blood pressure 166/97. Patient is afebrile. Patient is in no acute distress. Oral mucosa is pink and moist. Neck is supple. Trachea is midline. There is no JVD. Heart was regular rate and rhythm. Lungs are clear and equal bilaterally. Abdomen is soft. Bowel sounds are normal. There is some mild left lower quadrant tenderness. There is no rebound or guarding noted. Cranial nerves II through XII are intact. There are no focal motor or sensory deficits noted. Medical Decision Making: Differential diagnosis includes diverticulitis, bowel obstruction, perforation, colitis, ureteral calculus, pyelonephritis, and urinary tract infection. CT scan of the abdomen pelvis will be obtained to assess for diverticulitis, bowel obstruction, perforation. Serum hCG will be obtained to assess for . CBC will be obtained to assess for leukocytosis and anemia. Comprehensive metabolic profile will be obtained to assess for hepatic function, renal function, and electrolyte abnormalities. Lipase will be obtained to assess for pancreatitis. Urinalysis will be obtained to assess for urinary tract infection and hematuria. CBC was reviewed and was within normal limits. Comprehensive metabolic profile was reviewed. Potassium was slightly low at 3.3 and creatinine was slightly elevated at 1.44. Serum hCG was reviewed and was negative. Lipase was reviewed and was normal at 30. Urinalysis was reviewed. There is no evidence of urinary tract infection or hematuria. CT scan of the abdomen and pelvis was obtained. There is mild renomegaly. There are some varices noted in the glottic hilum. There is no free air or free fluid noted. There is no evidence of bowel obstruction or perforation. This was interpreted by the radiologist and was also independently reviewed by myself. Patient was given IV fluids. Patient was advised of her findings. Patient was instructed to follow-up with her primary care physician in 5 to 7 days for further evaluation. Patient understood and was agreeable with the plan. All questions were answered. Discharge Plan Triage Chief Complaint: Abd Pain ED Midlevel Provider: Rosemarie Valdivia ED Provider: Diego Steiner Dx/Rx/DC Orders Clinical Impression: Diarrhea, Abdominal pain, Nausea Instructions: Abdominal Pain, ED Diarrhea, Unknown Cause Prescriptions: New dicyclomine 10 mg capsule 10 mg PO BID PRN (Reason: abdominal pain) Qty: 10 0RF ondansetron 4 mg tablet,disintegrating 4 mg PO Q8H PRN PRN (Reason: Nausea) Qty: 10 0RF No Action fluconazole 150 mg tablet 150 mg PO Q3D Qty: 2 0RF Rx Instructions: may repeat second dose 72 hrs after first dose if symptoms persist losartan 100 mg tablet 100 mg PO DAILY Qty: 90 3RF levothyroxine 137 mcg tablet 137 mcg PO DAILY Qty: 90 3RF montelukast [Singulair] 10 mg tablet 10 mg PO QPM Qty: 90 3RF levofloxacin 500 mg tablet 500 mg PO DAILY Qty: 10 0RF Stand Alone Forms: ED Work / School Excuse Primary Care Provider: Renee Sommers Referrals: Renee Sommers MD [Primary Care Provider] - 5-7 Days Activity Restrictions/Additional Instructions: Follow up with your PCP and return for any worsening of your symptoms. Stay well-hydrated. Disposition Disposition: Home, Self Care Discharge Date/Time: 09/01/23 14:47
[2023-09-01 12:11] LABS: Absolute Lymphocyte Count 1.94 X10^3/uL (0.83-4.51); Absolute Neutrophil Count 5.5 X10^3/uL (2.0-7.7); Basophil# 0.03 X10^3/uL; Basophil% 0.4 % (0-1); Eosinophil# 0.11 X10^3/uL; Eosinophils% 1.4 % (0-5); Hematocrit 38.2 % (37-47); Hemoglobin 12.1 g/dL (12.0-15.0); Lymphocyte # 1.94 X10^3/ul (0.83-4.51); Lymphocyte % 23.9 % (19-41); Mean Corp Hgb Conc 31.7 g/dL (32-36); Mean Corpuscular Hgb 30.2 pg (27.0-32.0); Mean Corpuscular Volume 95.3 fL (81-99); Mean Platelet Vol. 11.4 fl (6.2-12.0); Monocyte# 0.46 X10^3/uL; Monocyte% 5.7 % (0-10); NRBC Flagged by Analyzer 0 % (0-5); Neutrophil # 5.53 X10^3/uL (2.7-7.7); Neutrophil % 68.1 % (47-70); Platelet Count 189 K/mm3 (150-450); RBC Distribution Width CV 13.6 % (11.6-14.6); RBC Distribution Width SD 47.7 fl (35.1-43.9); Red Blood Count 4.01 M/mm3 (4.2-5.4); White Blood Count 8.1 K/mm3 (4.4-11.0)
[2023-09-01] MEDS: Ondansetron 4 MG/2 ML Vial IV (12:22)
[2023-09-01] MEDS: Ketorolac 15 MG/ML Vial IV (12:22)
[2023-09-01] MEDS: 0.9% Normal Saline (1000mL) 1,000 ML 1000 ML IV (12:23)
[2023-09-01 12:24] LABS: ALB/GLOB Ratio 0.9 RATIO (0.9-2.4); AST(SGOT) 29 U/L (15-37); Alanine Aminotransfer ALT/SGPT 50 U/L (13-56); Albumin, Serum 3.7 g/dL (3.2-5.0); Alkaline Phosphatase 93 U/L (45-117); Anion Gap 9 (5-15); BUN 14 mg/dL (7-18); BUN/Creat Ratio 9.7 RATIO (10-20); Calcium,Total 8.9 mg/dL (8.5-10.1); Chloride 101 mmol/L (98-107); Creatinine, Serum 1.44 mg/dL (0.55-1.02); EST Glomerular Filtration Rate 42 mL/min (>60); Est Glom Filt Rate - Afr Amer 51 mL/min (>60); Estimated Creatinine Clearance 39.84 ml/min; Globulin 4.3 g/dL (2.2-4.2); Glucose 103 mg/dL (74-106); Lipase 30 U/L (13-75); Potassium 3.3 mmol/L (3.5-5.1); Sodium Level 139 mmol/L (136-145)
[2023-09-01 12:30] LABS: Bacteria 0 SEEN /hpf (None Seen); Mucous, Urine 0 SEEN /hpf (<or=2+); Red Blood Cells-Urine 0 SEEN /hpf (0-5); Squamous Epithelial Cells - UA 0 SEEN /hpf (5-10); White Blood Cells 0 SEEN /hpf (0-5)
[2023-09-01 12:37] LABS: Color, Urine Yellow (Yellow); Glucose, Dipstick Normal (Normal); Ketone-Dipstick Negative (Negative); Leukocyte Esterase-Dipstick Negative /ul (Negative); Nitrite-Dipstick Negative (Negative); Occult Blood-Urine 50 /ul (Negative); Protein-Dipstick Negative (Negative); Specific Gravity, Urine 1.005 (1.002-1.030); Urine Bilirubin Dipstick Negative (Negative); Urine Clarity Clear (Clear); Urine Urobilinogen Normal (Normal)
[2023-09-01 12:48] LABS: Internal QC Validated? YES +Cl - CLEAR BKGD; Pregnancy, Serum, hCG Quali. NEGATIVE Negative
== END 2023-09-01 14:47 | disposition home or self-care (01) ==
PROVIDERS: Physician Assistant; Emergency Provider Emergency Medicine; PCP Family Medicine; Visit Provider Emergency Medicine
DX: R19.7 Diarrhea, unspecified (principal); R10.32 Left lower quadrant pain; R11.0 Nausea
CPT/HCPCS: 74177; 80053; 81001; 83690; 84703; 85025; 96361; 96374; 96375; 99283; J7030; Q9967; A4216; J2405

== ENCOUNTER 2023-12-19 09:27 | Emergency (ER) | payer OTHER, SELFPAY ==
[2023-12-19 09:28] VITALS: BP 167/99; PULSE 81; RESP 18; TEMP 36.1; O2SAT 94; BMI 47.3
--- NOTE | 2023-12-19 10:57 | ED.VIS.BACK ---
HPI History of Present Illness Chief Complaint: Back Detail of Chief Complaint: Atraumatic left lower back pain paravertebral since Friday. Informant: patient Onset/Context/Timing Onset: Days Context: Gradual Onset Timing: Continuous Quality: Sharp Location: Lumbar Current Severity: Moderate Maximum Severity: Moderate Worsened by: improves with Movement and Bending Relieved by: Remaining Still Associated Symptoms Associated Symptoms: Negative for Numbness, Tingling, Radiation to Right Leg, Radiation to Left Leg, Fever, Abdominal Pain, Dysuria, Unable to Ambulate, Unable to Transfer, Urinary Retention, Urinary Incontinence, Constipation or Fecal Incontinence Narrative Narrative: 43-year-old female with atraumatic left lower back pain beginning on Friday. She has tried ibuprofen, massage and hot compresses without any significant relief. Denies any numbness or weakness to her legs. No radiation to her legs. No hematuria or dysuria. No history of kidney stones. Denies any fall injury or trauma. No prior back surgery or back history. She does have a history of right hip dysplasia that she has had surgery on. Prior similar symptoms: No Recent Illness/Hospitalization: No [facility] Medical History Asthma Cardiac arrhythmia Hypertension IBS (irritable bowel syndrome) Migraines Home Medications levothyroxine 137 mcg tablet 137 mcg PO DAILY #90 tabs 09/06/20 [Rx Last Taken Unknown] losartan 100 mg tablet 100 mg PO DAILY #90 tabs 09/06/20 [Rx Last Taken Unknown] montelukast 10 mg tablet (Singulair) 10 mg PO QPM #90 tabs 09/06/20 [Rx Last Taken Unknown] fluconazole 150 mg tablet 150 mg PO Q3D 2 doses #2 tabs 08/07/23 [Rx Last Taken Unknown] dicyclomine 10 mg capsule 10 mg PO BID PRN abdominal pain #10 caps 09/01/23 [Rx Last Taken Unknown] ondansetron 4 mg disintegrating tablet 4 mg PO Q8H PRN PRN Nausea #10 tabs 09/01/23 [Rx Last Taken Unknown] azithromycin 250 mg tablet (Zithromax Z-Johnathon) See Rx Instructions PO .COMPLEX #6 tabs 12/07/23 [Rx Last Taken Unknown] prednisone 10 mg tablet 10 mg PO .COMPLEX #30 tabs 12/07/23 [Rx Last Taken Unknown] metaxalone 800 mg tablet 800 mg PO TID 7 days #21 tabs 12/19/23 [Rx Last Taken Unknown] Allergy/AdvReac Type Severity Reaction Status Date / Time acetaminophen [From Percocet] Allergy Mild Other Verified 12/19/23 09:52 bupropion [From Wellbutrin] Allergy Mild Other Verified 12/19/23 09:52 hydrocodone [From Vicodin] Allergy Mild Other Verified 12/19/23 09:52 morphine Allergy Mild Other Verified 12/19/23 09:52 oxycodone [From Percocet] Allergy Mild Other Verified 12/19/23 09:52 lisinopril AdvReac Severe cough Verified 12/19/23 09:52 metoprolol AdvReac Severe asthma Verified 12/19/23 09:52 cefdinir AdvReac Intermediate u Verified 12/19/23 09:52 Penicillins AdvReac Intermediate u Verified 12/19/23 09:52 Family History Other FH: kidney cancer Liver cancer Surgical History History of appendectomy History of cholecystectomy S/P Social History Smoking Status: Never smoker ROS ROS ED ROS Narrative Denies recent illness. Denies fever. No dysuria or hematuria. No abdominal pain. No leg weakness, numbness or radiation to her legs. Review of Systems ROS Unobtainable: Denies due to encephalopathy Constitutional Constitutional ED: Denies chills or fever(s) Eyes Eyes: Denies blurry vision or change in vision ENT ENT ED: Denies ear pain or rhinorrhea Cardiovascular Cardiovascular: Denies chest pain or palpitations Respiratory/Chest Respiratory/Chest: Denies dyspnea or dyspnea on exertion Gastrointestinal Gastrointestinal: Denies abdominal pain, constipation, diarrhea, melena, nausea or vomiting Genitourinary Genitourinary ED: Denies dysuria or hematuria Musculoskeletal Musculoskeletal: Reports back pain; Denies arthralgias, myalgias or neck pain Integumentary Denies abscess or Abrasions Neurologic Neurologic: Denies headache(s) or paresthesias Psychiatric Psychiatric: Denies anxiety or depression Endocrine Endocrinology: Denies cold intolerance, heat intolerance, polydipsia, polyphagia or polyuria Hematologic/Lymphatic Hematologic/Lymphatic: Denies easy bleeding, easy bruising or lymphadenopathy Allergic/Immunologic Allergic/Immunologic ED: Denies mouth swelling, tongue swelling or urticaria EXAM Physical Exam Narrative Exam Narrative: Well-appearing 43-year-old female. Vital signs stable afebrile. H EENT exam unremarkable. Neck nontender no lymphadenopathy. Lungs clear to auscultation bilateral. Heart regular rate rate about 80 no murmur. Chest wall nontender. Abdomen soft nontender. No rashes. Moving all 4 extremities. Neurovascular intact. 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 Dorsi plantarflexion intact. No cauda equina. No saddle anesthesia. 5 out of 5 motor strength. Normal sensation. Back reproducible soft tissue tenderness on the left side of her lumbar spine consistent with muscle spasm. There is no redness or signs of trauma. There is no spine tenderness. There is no right-sided tenderness. No SI tenderness. She is able to lift either leg but is limited due to her prior right hip surgery for hip dysplasia. She is awake and alert. Answer questions following commands. No focal motor deficits or sensory losses. Const Vital Signs: 12/19/23 09:28 Temperature 97 F L Temperature Source Temporal Pulse Rate 81 Respiratory Rate 18 Blood Pressure 167/99 H Blood Pressure Mean 121 Pulse Ox 94 Oxygen Delivery Method Room Air Positive well nourished and well developed; Negative for cachectic, contractures or unkempt General Appearance ED: well developed and NAD; Negative for unkempt, cachectic, contractures or pallor Nutritional Appearance: Negative for cachectic HEENT Reports moist mucous membranes; Denies dry mucous membranes Negative for trauma or tenderness Mouth ED: No dry mucous membranes Mouth: No dry mucous membranes Eyes PERRL and EOMs intact bilaterally General Eye ED: Negative for pale conjunctiva, scleral icterus or other Neck no lymphadenopathy, supple and no JVD General: Negative for tenderness Thyroid: Negative for other Chest Wall Chest: Negative for other Resp normal respiratory effort and clear to auscultation bilaterally Effort and Inspection: Negative for pain with movement Auscultation: Negative for rales, rhonchi, wheezes or diminished lung sounds Cardio regular rate, regular rhythm, S1 normal heart sound, S2 normal heart sound and no murmurs Palpation: Negative for palpable S3 Rate: Negative for bradycardia or tachycardic Rhythm: Negative for abnormal rhythm Bruits: Negative for other GI normal to inspection, nondistended, normoactive bowel sounds, soft to palpation, non-tender, non-distended and no masses Inspection: Negative for abdominal distention Auscultation: Negative for hyperactive bowel sounds Palpation: Negative for tender, guarding, pulsatile mass or rebound tenderness present Back/Spine no thoracic nor lumbar tenderness; Negative for normal to inspection Back/Spine Narrative: Left-sided paralumbar soft tissue tenderness consistent with muscle spasm. No redness. No warmth. No signs of trauma. No spine tenderness. No SI tenderness. Thoracic Spine / Upper Back: paraspinal muscle tenderness Lumbar Spine / Lower Back: straight leg raise negative bilaterally Extremity normal to inspection and no clubbing, cyanosis or edema General Extremety ED: Negative for edema or tenderness General Extremity: Negative for edema Neuro oriented x3 and no sensory deficits noted Sensorium / Orientation: alert; Negative for confused or stuporous Motor Exam: strength 5/5 throughout Psych mental status grossly normal Appearance: Negative for unkempt Attitude: No agitated and No other Mood & Affect: Negative for depressed, sad or tearful Skin no rashes or lesions noted General Skin Exam: Negative for jaundice or pallor Lesions: No lesion noted Rashes: No rashes noted Trauma: Negative for abrasion, puncture or other Wounds: Negative for wounds noted Image ED - Body Diagram Man: 1. Left-sided paralumbar soft tissue tenderness consistent with myofascial spasm. MDM MDM MDM Narrative Medical decision making narrative: 43-year-old female exam is consistent with a paralumbar soft tissue muscle spasm. I do not think she needs any imaging she had no trauma. She has no signs of disc or cauda equina. I do not feel she needs an MRI. She has normal motor strength and sensation in both lower extremities. She had no trauma. She did want me to check a UA which is being done. She is being given IM Toradol and a Skelaxin for muscle relaxation. History & Record Review Discussion w/independent historian: Patient and Family Lab Data Attestation: I reviewed the patient's lab results. Lab results narrative: UA is normal. No white or red cells. No nitrates or bacteria on the micro. Labs: Laboratory Results - last 24 hr 12/19/23 09:42 Urine Color Yellow Urine Clarity Clear Urine pH 6.5 Ur Specific [place] 1.010 Urine Protein Negative Urine Glucose (UA) Normal Urine Ketones Negative Urine Occult Blood 50 H Urine Nitrite Negative Urine Bilirubin Negative Urine Urobilinogen Normal Ur Leukocyte Esterase Negative Urine RBC 0 SEEN Urine WBC 0 SEEN Ur Squamous Epith Cells 0-5 SEEN Urine Bacteria 0 SEEN Urine Mucus 0 SEEN Discharge Plan Triage Chief Complaint: Back ED Provider: Lucio Elmore Dx/Rx/DC Orders Clinical Impression: Back muscle spasm, Back pain Instructions: ED Back Spasm, No Trauma Prescriptions: New metaxalone 800 mg tablet 800 mg PO TID 7 Days Qty: 21 0RF No Action fluconazole 150 mg tablet 150 mg PO Q3D Qty: 2 0RF Rx Instructions: may repeat second dose 72 hrs after first dose if symptoms persist prednisone 10 mg tablet 10 mg PO .COMPLEX Qty: 30 0RF Rx Instructions: Take 4 pills for 3 days, 3 pills for 3 days, 2 pills for 3 days, take 1 pill for 3 days azithromycin [Zithromax Z-Johnathon] 250 mg tablet See Rx Instructions PO .COMPLEX Qty: 6 0RF Rx Instructions: For 250 mg dose pack: take 500 mg today (day 1), then 250 mg for 4 days (days 2-5) PO losartan 100 mg tablet 100 mg PO DAILY Qty: 90 3RF levothyroxine 137 mcg tablet 137 mcg PO DAILY Qty: 90 3RF montelukast [Singulair] 10 mg tablet 10 mg PO QPM Qty: 90 3RF dicyclomine 10 mg capsule 10 mg PO BID PRN (Reason: abdominal pain) Qty: 10 0RF ondansetron 4 mg tablet,disintegrating 4 mg PO Q8H PRN PRN (Reason: Nausea) Qty: 10 0RF Primary Care Provider: Renee Sommers Referrals: Renee Sommers MD [Primary Care Provider] - 1 Week if not improving Activity Restrictions/Additional Instructions: Motrin 600 mg 3 times a day for pain and inflammation. Hot shower, warm bath and massage. Skelaxin 800 mg 3 times a day as a muscle relaxant. For 1 week. Will take several days by day 3 or 4 you should notice a significant difference. Follow-up with your doctor if not improving or return if worse. Disposition Disposition: Home, Self Care
[2023-12-19 11:03] LABS: Bacteria 0 SEEN /hpf (None Seen); Mucous, Urine 0 SEEN /hpf (<or=2+); Red Blood Cells-Urine 0 SEEN /hpf (0-5); White Blood Cells 0 SEEN /hpf (0-5)
[2023-12-19 11:04] LABS: Color, Urine Yellow (Yellow); Glucose, Dipstick Normal (Normal); Ketone-Dipstick Negative (Negative); Leukocyte Esterase-Dipstick Negative /ul (Negative); Nitrite-Dipstick Negative (Negative); Occult Blood-Urine 50 /ul (Negative); Protein-Dipstick Negative (Negative); Urine Bilirubin Dipstick Negative (Negative); Urine Clarity Clear (Clear); Urine Urobilinogen Normal (Normal); Urine pH 6.5 (5.0 - 8.0)
[2023-12-19] MEDS: Metaxalone 800 MG Tablet PO (11:06)
[2023-12-19] MEDS: Ketorolac 60 MG/2 ML Vial IM (11:08)
[2023-12-19 11:30] LABS: Squamous Epithelial Cells - UA 0-5 SEEN /hpf (5-10)
[2023-12-19 11:53] VITALS: BP 140/64; PULSE 69; RESP 16; TEMP 36.8; O2SAT 96
== END 2023-12-19 11:56 | disposition home or self-care (01) ==
PROVIDERS: Emergency Provider Emergency Medicine; PCP Family Medicine; Visit Provider Emergency Medicine
DX: M62.830 Muscle spasm of back (principal); M54.50 Low back pain, unspecified
CPT/HCPCS: 81001; 96372; 99283

== ENCOUNTER 2024-02-25 14:26 | Emergency (ER) | payer OTHER, SELFPAY ==
[2024-02-25] VITALS (7 sets, daily range): BP systolic 112–195; BP diastolic 66–106; PULSE 71–109; RESP 14–18; TEMP 36.1–36.3; O2SAT 95–100; BMI 47.6
--- NOTE | 2024-02-25 14:40 | EKG12_ITS ---
Test Reason : PALP Blood Pressure : / mmHG Vent. Rate : 092 BPM Atrial Rate : 092 BPM P-R Int : 178 ms QRS Dur : 096 ms QT Int : 382 ms P-R-T Axes : 057 043 048 degrees QTc Int : 472 ms Normal sinus rhythm Normal ECG Confirmed by Khadar Burleson ([id number]), copy editor DINORA ALARCON ([id number]) on 03/01/2024 1:18:19 PM Referred By: ENID/RAPHAEL Confirmed By:Khadar Burleson
--- NOTE | 2024-02-25 15:05 | RAD_ITS ---
STUDY: X-RAY CHEST REASON FOR EXAM: Female, 43 years old. Chest pain TECHNIQUE: Single AP portable view of the chest. COMPARISON: Comparison is made with prior study dated January 22, 2011. FINDINGS: EKG electrodes are seen. The lungs are clear and expanded. There is no demonstrated pleural abnormality. Normal size heart. Normal mediastinum and lima. Normal visualized pulmonary arteries. Normal visualized aortic arch and descending thoracic aorta. Normal visualized thoracic spine. Normal visualized ribs, clavicles, and shoulders. There is no demonstrated abnormality of the visualized soft tissue structures of the upper abdomen. RAD/Chest 1 View (Portable) IMPRESSION: Normal x-ray examination of the chest. Electronically Signed: Jose J Wagner MD at 15:45 EDT ,
[2024-02-25 15:13] LABS: Absolute Lymphocyte Count 2.64 X10^3/uL (0.83-4.51); Basophil# 0.04 X10^3/uL; Basophil% 0.4 % (0-1); Eosinophil# 0.22 X10^3/uL; Eosinophils% 2.4 % (0-5); Hematocrit 37.6 % (37-47); Hemoglobin 12.6 g/dL (12.0-15.0); Lymphocyte # 2.64 X10^3/ul (0.83-4.51); Lymphocyte % 28.3 % (19-41); Mean Corp Hgb Conc 33.5 g/dL (32-36); Mean Corpuscular Hgb 31.7 pg (27.0-32.0); Mean Corpuscular Volume 94.7 fL (81-99); Mean Platelet Vol. 11.5 fl (6.2-12.0); Monocyte# 0.42 X10^3/uL; Monocyte% 4.5 % (0-10); NRBC Flagged by Analyzer 0 % (0-5); Neutrophil # 5.96 X10^3/uL (2.7-7.7); Neutrophil % 63.8 % (47-70); Platelet Count 203 K/mm3 (150-450); RBC Distribution Width SD 48.5 fl (35.1-43.9); Red Blood Count 3.97 M/mm3 (4.2-5.4); White Blood Count 9.3 K/mm3 (4.4-11.0)
[2024-02-25 15:14] LABS: Anion Gap 6 (5-15); BUN 17 mg/dL (7-18); BUN/Creat Ratio 13.6 RATIO (10-20); Chloride 103 mmol/L (98-107); Creatinine, Serum 1.25 mg/dL (0.55-1.02); EST Glomerular Filtration Rate 50 mL/min (>60); Est Glom Filt Rate - Afr Amer 60 mL/min (>60); Estimated Creatinine Clearance 73.51 ml/min; Glucose 149 mg/dL (74-106); Potassium 3.4 mmol/L (3.5-5.1); Sodium Level 136 mmol/L (136-145); Troponin-I HS (w/2H Reflex) 4 pg/mL (3.0-54.0)
[2024-02-25] MEDS: 0.9% Normal Saline (1000mL) 1,000 ML 999 ML IV (15:50)
--- NOTE | 2024-02-25 15:57 | EX.ED.DYSGE1 ---
HPI History of Present Illness Chief Complaint: Palpitations Narrative Narrative: 43-year-old female presenting with palpitations. She states she has had these in the past. She followed up with Dr. Martell and had an echocardiogram. She states that they chalked it up to anxiety. She has not had an issue with that since. She woke up today at about 8:00 and started having palpitations. She states he is not lightheaded or dizzy. She is not having chest pain or shortness of breath. No nausea or vomiting. She states that she did not really feel anxious before the symptoms and might have been a little anxious when they started but she feels otherwise okay. She has not had fevers, chills, nausea, vomiting, she has been eating and drinking normally. She states she drinks about 2 40 ounce cups of water per day. Denies dysuria or hematuria. No concern for . She has history of hypothyroidism but does get regular lab work and states that her thyroid has been fine. She had no medication changes. [facility] Medical History Hypertension Cardiac arrhythmia Migraines Asthma IBS (irritable bowel syndrome) Home Medications ?Medication ?Instructions ?Recorded ?Last Taken ?Type levothyroxine 137 mcg tablet 137 mcg PO DAILY #90 tabs 09/06/20 Unknown Rx losartan 100 mg tablet 100 mg PO DAILY #90 tabs 09/06/20 Unknown Rx montelukast 10 mg tablet 10 mg PO QPM #90 tabs 09/06/20 Unknown Rx (Singulair) fluconazole 150 mg tablet 150 mg PO Q3D 2 doses #2 tabs 08/07/23 Unknown Rx dicyclomine 10 mg capsule 10 mg PO BID PRN abdominal pain 09/01/23 Unknown Rx #10 caps ondansetron 4 mg disintegrating 4 mg PO Q8H PRN PRN Nausea #10 tabs 09/01/23 Unknown Rx tablet azithromycin 250 mg tablet See Rx Instructions PO .COMPLEX #6 12/07/23 Unknown Rx (Zithromax Z-Johnathon) tabs prednisone 10 mg tablet 10 mg PO .COMPLEX #30 tabs 12/07/23 Unknown Rx metaxalone 800 mg tablet 800 mg PO TID 7 days #21 tabs 12/19/23 Unknown Rx Allergy/AdvReac Type Severity Reaction Status Date / Time acetaminophen (From Percocet) Allergy Mild Other Verified 02/25/24 14:29 bupropion (From Wellbutrin) Allergy Mild Other Verified 02/25/24 14:29 hydrocodone (From Vicodin) Allergy Mild Other Verified 02/25/24 14:29 morphine Allergy Mild Other Verified 02/25/24 14:29 oxycodone (From Percocet) Allergy Mild Other Verified 02/25/24 14:29 lisinopril AdvReac Severe cough Verified 02/25/24 14:29 metoprolol AdvReac Severe asthma Verified 02/25/24 14:29 cefdinir AdvReac Intermediate u Verified 02/25/24 14:29 Penicillins AdvReac Intermediate u Verified 02/25/24 14:29 Family History Other FH: kidney cancer Liver cancer Surgical History S/P History of cholecystectomy History of appendectomy Social History Smoking Status: Current every day smoker tobacco type: e-cigarettes ROS ROS ED Constitutional Constitutional ED: Denies chills, fever(s) or sweats Eyes Eyes: Denies blurry vision or change in vision ENT ENT ED: Denies ear pain or sore throat Cardiovascular Cardiovascular: Reports palpitations; Denies chest pain Respiratory/Chest Respiratory/Chest: Denies cough, dyspnea or sputum Gastrointestinal Gastrointestinal: Denies abdominal pain, constipation, diarrhea, nausea or vomiting Genitourinary Genitourinary ED: Denies dysuria, hematuria or urinary frequency Musculoskeletal Musculoskeletal: Denies arthralgias, myalgias or neck pain Integumentary Denies abscess, Abrasions or rash Neurologic Neurologic: Denies headache(s), paresthesias or weakness Psychiatric Psychiatric: Denies anxiety, depression, suicidal ideation or suicidal thoughts Endocrine Endocrinology: Denies polydipsia or polyuria EXAM Physical Exam Const Vital Signs: 02/25/24 14:27 02/25/24 14:29 02/25/24 15:00 Temperature 97 F L Temperature Source Temporal Pulse Rate 109 H Respiratory Rate 16 Respiratory Effort Blood Pressure 195/105 H 186/106 H Blood Pressure Mean 135 132 Pulse Ox 100 Oxygen Delivery Method Room Air Room Air 02/25/24 15:01 02/25/24 15:26 02/25/24 16:00 Temperature Temperature Source Pulse Rate 77 78 Respiratory Rate 18 16 Respiratory Effort Normal Non-Labored Blood Pressure 133/83 H 115/70 Blood Pressure Mean 99 85 Pulse Ox 95 95 Oxygen Delivery Method Room Air Room Air 02/25/24 17:00 Temperature Temperature Source Pulse Rate 71 Respiratory Rate 14 Respiratory Effort Blood Pressure 112/75 Blood Pressure Mean 87 Pulse Ox 98 Oxygen Delivery Method Room Air Positive well nourished General Appearance ED: NAD; Negative for pallor HEENT Reports moist mucous membranes Eyes PERRL and EOMs intact bilaterally Resp normal respiratory effort and clear to auscultation bilaterally Auscultation: Negative for rales, rhonchi or wheezes Cardio regular rate and regular rhythm Neuro oriented x3 and CN's II-XII intact bilaterally Sensorium / Orientation: alert Motor Exam: strength 5/5 throughout Psych mental status grossly normal Skin no rashes or lesions noted General Skin Exam: Negative for jaundice or pallor MDM MDM MDM Narrative Medical decision making narrative: Patient presenting with palpitations. On the monitor I can see she is having PVCs which are fairly frequent. She feels comfortable sitting in the bed. Differential includes dysrhythmia, dehydration, anemia, electrolyte abnormalities, hypothyroidism, hyperthyroidism, ACS, pneumonia. CBC was obtained to assess white blood cell count, hemoglobin, platelets. Magnesium level will be obtained. TSH be obtained. High-sensitivity troponin EKG to assess for ischemia/dysrhythmia. Chest x-ray to rule out pneumonia or other acute process. CBC shows normal white blood cell count at 9.3. Hemoglobin 12.6. Platelets are normal at 203. Creatinine 1.25 and actually improved to 1.44. High-sensitivity troponin is 4. EKG interpreted by myself shows a sinus rhythm at 92 bpm without sign of ischemia or ectopy. Magnesium level is normal at 2.1. TSH normal at 1.3. Patient has been ambulating throughout the ER without any difficulty or unsteadiness. I do believe she stable for discharge. She can follow back up with cardiology or PCP. Impression: 1. Palpitations 2. PVCs 3. Hypokalemia Lab Data Attestation: I reviewed the patient's lab results. Labs: Laboratory Results - last 24 hr 02/25/24 02/25/24 14:50 14:53 WBC 9.3 RBC 3.97 L Hgb 12.6 Hct 37.6 MCV 94.7 MCH 31.7 MCHC 33.5 RDW Std Deviation 48.5 H RDW Coeff of Svetlana 14.0 Plt Count 203 MPV 11.5 Immature Gran % (Auto) 0.600 Neut % (Auto) 63.8 Lymph % (Auto) 28.3 [place] % (Auto) 4.5 Eos % (Auto) 2.4 Baso % (Auto) 0.4 Absolute Neuts (auto) 6.0 Absolute Lymphs (auto) 2.64 Nucleated RBC % 0 Sodium 136 Potassium 3.4 L Chloride 103 Carbon Dioxide 27.0 Anion Gap 6 BUN 17 Creatinine 1.25 H Estim Creat Clear Calc 73.51 Est GFR (MDRD) Af Amer 60 Est GFR (MDRD) Non-Af 50 L BUN/Creatinine Ratio 13.6 Glucose 149 H Calcium 9.0 Magnesium 2.1 Troponin I High Sens 4 TSH 1.30 Radiography Diagnostic Testing: Clinical Impression(s) from Imaging Studies Chest X-Ray 02/25/24 15:05 IMPRESSION: Normal x-ray examination of the chest. Electronically Signed: Jose J Wagner MD at 15:45 EDT , Discharge Plan Triage Chief Complaint: Palpitations ED Provider: Mark Jacques Dx/Rx/DC Orders Instructions: PVCs, ED Palpitations, ED Potassium-Rich Foods Prescriptions: No Action fluconazole 150 mg tablet 150 mg PO Q3D Qty: 2 0RF Rx Instructions: may repeat second dose 72 hrs after first dose if symptoms persist prednisone 10 mg tablet 10 mg PO .COMPLEX Qty: 30 0RF Rx Instructions: Take 4 pills for 3 days, 3 pills for 3 days, 2 pills for 3 days, take 1 pill for 3 days azithromycin [Zithromax Z-Johnathon] 250 mg tablet See Rx Instructions PO .COMPLEX Qty: 6 0RF Rx Instructions: For 250 mg dose pack: take 500 mg today (day 1), then 250 mg for 4 days (days 2-5) PO losartan 100 mg tablet 100 mg PO DAILY Qty: 90 3RF levothyroxine 137 mcg tablet 137 mcg PO DAILY Qty: 90 3RF montelukast [Singulair] 10 mg tablet 10 mg PO QPM Qty: 90 3RF dicyclomine 10 mg capsule 10 mg PO BID PRN (Reason: abdominal pain) Qty: 10 0RF ondansetron 4 mg tablet,disintegrating 4 mg PO Q8H PRN PRN (Reason: Nausea) Qty: 10 0RF metaxalone 800 mg tablet 800 mg PO TID 7 Days Qty: 21 0RF Primary Care Provider: Renee Sommers Referrals: Socrates Martell MD [Med Staff - Active Staff] - 3-5 Days Renee Sommers MD [Primary Care Provider] - Print Language: Sammarinese Disposition Disposition: Home, Self Care
[2024-02-25 16:49] LABS: Magnesium 2.1 mg/dL (1.6-2.6)
[2024-02-25 16:53] LABS: Reflex Troponin-HS? (from REC) Y
== END 2024-02-25 18:37 | disposition home or self-care (01) ==
PROVIDERS: Emergency Provider Student in an Organized Health Care Education/Training Program; PCP Family Medicine; Visit Provider Student in an Organized Health Care Education/Training Program
DX: R00.2 Palpitations (principal); I49.3 Ventricular premature depolarization; E87.6 Hypokalemia; F17.290 Nicotine dependence, other tobacco product, uncomplicated
CPT/HCPCS: 71045; 80048; 83735; 84443; 84484; 85025; 93005; 96360; 96361; 99284; J7030; A4216

== ENCOUNTER → 2024-05-04 | Outpatient (CLI) | payer OTHER, SELFPAY ==
[2024-05-04 15:56] LABS: Vitamin D,25 Hydroxy 44.5 ng/mL
[2024-05-04 16:10] LABS: Thyroid Stim Hormone (TSH) 2.31 uIU/mL (0.358-3.74)
== END | disposition home or self-care (01) ==
LOC: MTLAB 13:07
PROVIDERS: PCP Family Medicine; Referring Provider Family Medicine; Visit Provider Family Medicine
DX: I10 Essential (primary) hypertension (principal); E03.9 Hypothyroidism, unspecified; E55.9 Vitamin D deficiency, unspecified
CPT/HCPCS: 36415; 82306; 84443

== ENCOUNTER → 2024-06-24 | Outpatient (CLI) | payer OTHER, SELFPAY ==
--- NOTE | 2024-06-24 12:14 | BI_ITS ---
MAMMOGRAPHY - BILATERAL SCREENING REASON FOR EXAM: Female, 44 years old. Routine annual screening examination. PERTINENT HISTORY: Non-contributory. TECHNIQUE: Digital bilateral breast sean (3D mammographic acquisition) in the CC and MLO projections. 2-D mediolateral oblique (MLO) and craniocaudad (CC) views of both breasts were obtained. CAD: Full Field Digital Mammography with Computer Added Detection was performed. COMPARISON: Comparison is made with prior study September 01, 2020. FINDINGS: Breast Composition: The breasts are almost entirely fatty. There is a 6.9 mm x 6.9 mm well-defined nodule in the deep central slightly medial aspect of the right breast. Correlation with ultrasound is recommended. Stable small benign-appearing bilateral axillary lymph nodes. No other significant abnormalities are identified. BI/SCRN MAMM (CAD)W/SEAN BILAT IMPRESSION: 6.9 mm x 6.9 mm well-defined nodule in the deep central slightly medial aspect of the right breast. Correlation with ultrasound is recommended. ASSESSMENT CATEGORY: BIRADS Category 0: Incomplete. Need additional imaging evaluation. A letter regarding these results will be sent to the patient by the facility within 30 days. Approximately 10% of breast cancers are not detected by mammography. A normal mammogram should not delay biopsy of a clinically suspicious abnormality. [id number] Electronically Signed: Jose J Wagner MD at 13:24 EDT ,
== END | disposition home or self-care (01) ==
PROVIDERS: PCP Family Medicine
DX: Z12.31 Encounter for screening mammogram for malignant neoplasm of breast (principal)
CPT/HCPCS: 77063; 77067

== ENCOUNTER → 2024-06-30 | Outpatient (CLI) | payer OTHER, SELFPAY ==
--- NOTE | 2024-06-30 11:56 | US_ITS ---
STUDY: ULTRASOUND BREAST - RIGHT REASON FOR EXAM: Female, 44 years old. Abnormal screening mammogram. TECHNIQUE: Axial and longitudinal images of the RIGHT breast were performed with a high resolution ultrasound transducer. # OF IMAGES: 55 COMPARISON: Comparison is made with prior mammogram dated June 24, 2024. FINDINGS: RIGHT Breast: The medial aspect of the right breast was examined with ultrasound. There is heterogeneous fibroglandular tissue. No sonographic abnormality is seen. Additional mammographic views will be obtained. US/Breast Limited Unilateral IMPRESSION: No sonographic abnormality is seen. Additional mammographic views will be obtained. ASSESSMENT CATEGORY: BIRADS Category 0: Incomplete. Need additional imaging evaluation. A letter regarding these results will be sent to the patient by the facility within 30 days. Electronically Signed: Jose J Wagner MD at 13:50 EDT ,
--- NOTE | 2024-06-30 12:56 | BI_ITS ---
MAMMOGRAPHY - UNILATERAL DIAGNOSTIC: RIGHT BREAST REASON FOR EXAM: Female, 44 years old. Abnormal screening mammogram. PERTINENT HISTORY: Non-contributory. TECHNIQUE: 90 degree lateral and compression spot views of the right breast were obtained following the sonogram. CAD: Full Field Digital Mammography with Computer Added Detection was performed. COMPARISON: Comparison is made with prior study dated June 24, 2024. FINDINGS: Breast Composition: The breasts are almost entirely fatty. Persistent 6.9 mm x 6.9 mm well-defined nodule in the deep central slightly medial aspect of the right breast. Sonogram did not demonstrate this abnormality. Correlation with MRI is recommended for further evaluation. No other significant abnormalities are identified. BI/DIAG MAMM W/CAD, UNILAT IMPRESSION: Persistent 6.9 mm x 6.9 mm well-defined nodule in the deep central slightly medial aspect of the right breast as described. This was not visualized on the recent sonogram. Correlation with MRI recommended. ASSESSMENT CATEGORY: BIRADS Category 0: Incomplete. Need additional imaging evaluation. A letter regarding these results will be sent to the patient by the facility within 30 days. Approximately 10% of breast cancers are not detected by mammography. A normal mammogram should not delay biopsy of a clinically suspicious abnormality. Electronically Signed: Jose J Wagner MD at 13:41 EDT ,
== END | disposition home or self-care (01) ==
PROVIDERS: PCP Family Medicine
DX: N63.10 Unspecified lump in the right breast, unspecified quadrant (principal)
CPT/HCPCS: 76642; 77065

== ENCOUNTER → 2024-07-26 | Outpatient (CLI) | payer OTHER, SELFPAY ==
--- NOTE | 2024-07-26 12:44 | MRI_ITS ---
STUDY: BILATERAL BREAST MR WITHOUT AND WITH CONTRAST REASON FOR EXAM: Female, 44 years old. Right breast lump. Abnormal mammogram. Lesion not seen on ultrasound. TECHNIQUE: Multi-sequence multi-echo imaging of both breasts was performed with a dedicated breast coil. T1-weighted and T2-weighted images were performed before the administration of contrast. T1-weighted images were also performed after the intravenous administration of 21 cc of Clariscan contrast. COMPARISON: Prior screening mammograms dated September 01, 2020, June 24, 2024, right breast ultrasound dated June 30, 2024 and right diagnostic mammogram dated June 30, 2024 FINDINGS: RIGHT BREAST: Fatty replaced breast tissue with minimal background enhancement. Lobulated enhancing mass with increased since T2 signal intensity and a probable fatty hilum located in the lower medial breast corresponding to the area seen on the mammogram approximately 9 cm from the nipple. Lesion is most compatible with a benign lymph node. A six-month follow-up right mammogram with exaggerated views to get it is close to the chest wall as possible is recommended for follow-up cystic lesion can be seen on the mammogram. LEFT BREAST: Fatty replaced breast tissue with minimal background enhancement. No abnormal enhancing masses or areas of non-mass enhancement in the left breast. No enlarged or abnormal lymph nodes. No abnormality in the visualized regions of the chest or liver. MRI/Breast Bilateral W/O and W IMPRESSION: Lesion in the right breast compatible with a nonaggressive lesion, most likely a lymph node. A six-month follow-up right mammogram with exaggerated views, as outlined above, is recommended for follow-up since the lesion can be seen on the mammogram. CATEGORY: BIRADS Category 3: Probably Benign - Short-Interval Follow-up Suggested. A letter regarding these results will be sent to the patient by the facility within 30 days. Electronically Signed: Seth Ballesteros MD at 20:59 EDT ,
[2024-07-26 13:19] LABS: CREATININE FINGERSTICK < 1.0 mg/dL (0.55-1.02); EGFR FINGERSTICK > 60.0000 mL/min (>60)
== END | disposition home or self-care (01) ==
LOC: MRI 12:35
PROVIDERS: PCP Family Medicine
DX: N63.10 Unspecified lump in the right breast, unspecified quadrant (principal)
CPT/HCPCS: 77049; A9575; A4216; C8908

== ENCOUNTER → 2024-08-16 | Outpatient (CLI) | payer OTHER, SELFPAY ==
[2024-08-16 16:13] LABS: T4 Free Direct 1.06 ng/dL (0.76-1.46)
== END | disposition home or self-care (01) ==
PROVIDERS: PCP Family Medicine; Referring Provider Nurse Practitioner Family; Visit Provider Nurse Practitioner Family
DX: E03.9 Hypothyroidism, unspecified (principal)
CPT/HCPCS: 36415; 84439; 84443

== ENCOUNTER 2024-09-30 12:30 | Outpatient (RCR) | payer OTHER, SELFPAY ==
--- NOTE | 2024-09-01 16:55 | HP.PTEVAL_ITS ---
Patient's Visit Information Visit Information Visit Information: MARY ANN HERNANDEZ is a 44 year old F referred to Physical Therapy by LAVERNE Jimenez with a diagnosis of Trochanteric brusitis. Date of Evaluation: 09/01/24 Physical Therapist: Diego Bradley, DPT, OCS, CSCS Visit Plan Frequency: 3x /Week Duration: 4-6 Weeks Plan: 3x/week for 3-6 weeks for IE: ITB stretch S/L 3 min adn quad stretch prone 30 x5, activity modifcaiton, benefits of heel lift for R shoe and ice TENS whcih she has at home In clinic please:1. US nonthermal to L trochanteric bursa, rollout ITB L and quad and lateral HS into piriformis area, stretch ITB adn priformis, hip stabs and core strength to HEP, may do ice and TENS if needed. Subjective Subjective: L hip hurts for long time. Has hurt for 6-9 months and intermittent at the start without reason. Got bad 3 weeks ago as dog yanked her out the back door and twisted and landed on L foot. Worse now. Pain is lasterally in L hip pointing to trochanter. 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 Sleep is not great due to L hip as it wakes her up. Sleeps in recliner as it is most comfortable. 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 Sitting at work is OK, getting up is painful. Needs stabilizing due to L hip pain. Basic ADLs all I, slow and can be a struggle. Putting shoes and socks on can be a struggle. Hobbies: avoids bowling due to hip pain Pain L hip: Pain Intensity (Out of 10): 0 Pain Intensity Range: 0 and 8 Comment: going to bed and buckled last night Objective Objective: L leg 3/4 inch longer today in supine. Walks avoiding excess weight through L side adn R foot rotated out(likely normal for her with history), Antalgia L but I, steps recirpocal but painful to use L in lateral hip. Trasnfers bed and chair are I. Max tender over L trochanteric bursa pointedly and posteriorly into hip stabs.ITB slightly tender. ITB and quad are tight and missing motion on L as compared to R. HS are symmetrical. strength R hip flexion 2, L hip 3 and painful, abd 3 and painful L, 3 on R extension 3 L and R with limited hip extension. ER painful L and IR not bad. reflexes 2/3 patella adn achilles B Sensation LE WNL to gross light touch. + MAKENNA, - FADDIR L. - scour. Balance/Special Test Scores Functional Gait Assessment Score: 28 % Disability: 6.6700 Lower Extremity Functional Score: 30 Goals Goal 1:: Pain 75% better adn 2/10 at worst and manageable Goal Time Frame: 4-6 Weeks Goal 2:: I appropriate HEP for stretching and strengthening and activity modifcaiton to minimize future symptoms. Goal Time Frame: 4-6 Weeks Goal 3:: sleep without interruption at night Goal Time Frame: 4-6 Weeks Goal 4:: steps reciprocally without L hip pain Goal Time Frame: 4-6 Weeks Rehabilitation Potential Physical Therapy Diagnosis: R hip pain limiting comfortable funciton Rehabilitation Potential: Fair Anticipated Interventions Patient/Client Instruction: Educate patient on: Condition and Plan of Care For the Purpose of:: To decrease pain, To increase ROM, To improve nutrient delivery to tissue, To increase tolerance to activity/condition/position, To improve ability of physical actions for home/community/work/leisure and To improve gait and locomotor functions Therapeutic Exercise to Include: Strength training, Postural training, Flexibilty training, Gait and locomotor training, Passive ROM and Active ROM For the Purpose of:: To decrease pain, To increase ROM, To improve nutrient delivery to tissue, To improve muscle performance and motor function, To increase tolerance to activity/condition/position and To improve ability of physical actions for home/community/work/leisure Manual Therapy Techniques to Include: Passive ROM and Soft tissue mobilization For the Purpose of:: To decrease pain, To increase ROM, To improve nutrient delivery to tissue, To increase tolerance to activity/condition/position and To increase flexibility/ROM Orthotics: Shoe insert Comment: R heel lift For the Purpose of:: To decrease pain and To improve nutrient delivery to tissue TENS: Yes Cryotherapy (ice pack, ice massage): Yes Ultrasound (thermal/non thermal): Yes For the Purpose of:: To decrease pain, To decrease swelling/inflammation, To increase ROM, To improve nutrient delivery to tissue and To improve muscle performance and motor function Text: Thank you for the opportunity to evaluate your patient. For Medicare and Medicare HMO plans, please review the plan of care and approve it. It will need to be FAXED BACK to us at [phone] for Medicare purposes. For Medicare only, by signing this I certify the plan of care. Please let me know if there are questions or concerns regarding this plan of care. Physician Signature: Date:
--- NOTE | 2024-09-30 12:52 | HP.PTDCSUM ---
Discharge Summary D/C summary: It has been my pleasure to treat MARY ANN HERNANDEZ referred by Evon Jane NP-C, with the diagnosis of Trochanteric brusitis for a total of 9 visit(s). Discharge Date: Please see the following information for a summary of their discharge status. Subjective Subjective: I am no better at this time Pain L hip: Pain Intensity (Out of 10): 3 Overall Improvement % Improvement: 0 Objective Objective/Function: L hip pain ranges from 3-10/10 Pt is I with HEP Pt reports significant sleep difficulty secondary to pain Pt is abler to negotiate stairs reciprocally with 2 handrails, but still experiences significant L hip pain Goals Goal 1:: Pain 75% better adn 2/10 at worst and manageable Goal Progress: Not Progressing Goal 2:: I appropriate HEP for stretching and strengthening and activity modifcaiton to minimize future symptoms. Goal Progress: Goal Met Goal 3:: sleep without interruption at night Goal Progress: Not Progressing Goal 4:: steps reciprocally without L hip pain Goal Progress: Not Progressing Plan Plan: Discontinue secondary to lack of progress, RTD D/C Information d/c sentence: If there are questions or concerns regarding this patient's physical therapy, please feel free to call me at [phone]. Thank you for the referral of this patient. Sincerely, Harjeet Urrutia, PT, ATC Balance/Gait/Functional tests Balance/Special Test Scores Functional Gait Assessment Score: 28 % Disability: 6.6700 Lower Extremity Functional Score: 21 Improvement % Improvement: 0
== END 2024-09-30 19:00 | disposition home or self-care (01) ==
LOC: PT 12:30
PROVIDERS: PCP Family Medicine; Referring Provider Nurse Practitioner Family; Visit Provider Nurse Practitioner Family
DX: M70.62 Trochanteric bursitis, left hip (principal)
CPT/HCPCS: 97035; 97110; 97140; 97161; 97530

== ENCOUNTER → 2024-10-19 | Outpatient (CLI) | payer OTHER, SELFPAY ==
--- NOTE | 2024-10-19 15:58 | RAD_ITS ---
STUDY: X-RAY - RIGHT KNEE REASON FOR EXAM: Female, 44 years old. Pain, decreased range of motion TECHNIQUE: 4 view(s) of the knee. COMPARISON: None. FINDINGS: Normal visualized distal femur. Normal visualized proximal tibia and fibula. Normal proximal tibiofibular articulation. Normal medial femorotibial compartment. Normal lateral femorotibial compartment. Normal patellofemoral articulation. The soft tissue structures are unremarkable. RAD/Knee 4 or More Views IMPRESSION: Normal x-ray examination of the knee. Electronically Signed: Ethan Bettencourt MD at 20:55 EST ,
== END | disposition home or self-care (01) ==
LOC: MTRAD 15:57
PROVIDERS: PCP Family Medicine; Referring Provider Family Medicine; Visit Provider Family Medicine
DX: M25.461 Effusion, right knee (principal)
CPT/HCPCS: 73564

== ENCOUNTER 2025-02-25 13:58 | Outpatient (CLI) | payer OTHER, SELFPAY ==
--- NOTE | 2025-02-25 14:08 | BI_ITS ---
EXAM: DIAG MAMM W/CAD, UNILAT 02/25/2025 CLINICAL HISTORY: F, Age 44 y/o , N64.9 TECHNIQUE: Bilateral Diagnostic digital breast tomosynthesis with 2D and 3D images. Compression spot views were obtained. Computer aided detection. COMPARISON: Prior exam(s) dated June 30, 2024.. FINDINGS: TISSUE DENSITY: The breast tissue is composed of scattered area of fibroglandular density. Stable 6.5 mm x 6.9 mm well-defined nodule in the deep central medial aspect of the right breast. Correlation with ultrasound is recommended. BI/DIAG MAMM W/CAD, UNILAT IMPRESSION: Stable 6.5 mm 6.9 mm well-defined nodule in the deep central medial aspect of t he right breast as described. Targeted sonographic correlation recommended. RECOMMENDATION: BI-RADS category 0. A letter with findings and recommendations will be mailed to the patient. Reading Location: [place] [id number]
--- NOTE | 2025-02-25 14:48 | US_ITS ---
PROCEDURE: BREAST LIMITED UNILATERAL 02/25/2025 REASON FOR EXAM: ABN MAMM Inconclusive mammogram showed a right breast density. Evaluate. TECHNIQUE: Targeted left breast ultrasound. COMPARISON: Right breast ultrasound dated 06/30/2024 and mammogram studies dated 02/25/2025, 06/30/2024, and 06/24/2024. FINDINGS: Ultrasonography of the left breast was performed and no suspicious solid or cystic masses are seen to correlate to the nodular masslike density seen on the mammogram. The nodular masslike density seen on the mammogram study appears to represent a ridge of fibroglandular tissue on the ultrasound examination. US/Breast Limited Unilateral IMPRESSION: Impression: Ultrasonography of the left breast was performed and no suspicious solid or cystic masses are seen to correlate to the nodular masslike density seen on the mammogram. The nodular masslike densi ty seen on the mammogram study appears to represent a ridge of fibroglandular tissue on the ultrasound examination. Birads: BI-RADS 1: NEGATIVE. RECOMMEND ANNUAL MAMMOGRAPHIC SCREENING. RECOMMENDATION: The patient should return in May 2025 for routine yearly screening mammography. Reading Location: [id number]
== END 2025-02-25 23:59 | disposition home or self-care (01) ==
LOC: OPBI 14:02 → LAB 15:34
PROVIDERS: PCP Family Medicine; Referring Provider Family Medicine
DX: N63.10 Unspecified lump in the right breast, unspecified quadrant (principal); R92.8 Other abnormal and inconclusive findings on diagnostic imaging of breast; E03.9 Hypothyroidism, unspecified
CPT/HCPCS: 36415; 76642; 77061; 77065; 84439; 84443; G0279

== ENCOUNTER → 2025-07-28 | Outpatient (CLI) | payer OTHER, SELFPAY ==
--- NOTE | 2025-07-28 12:20 | BI_ITS ---
EXAM: BI/SCRN MAMM (CAD)W/SEAN BILAT
== END | disposition home or self-care (01) ==
LOC: OPBI 12:18
PROVIDERS: PCP Family Medicine
DX: Z12.31 Encounter for screening mammogram for malignant neoplasm of breast (principal)
CPT/HCPCS: 77063; 77067